=== PATIENT | male | born 1980 | race African-American/Black ===

== ENCOUNTER 2019-08-06 11:00 | Emergency (ER) | payer OTHER ==
[~2019-08-06] VITALS: Ht 175.3 cm; Wt 196.0 kg
[2019-08-06 11:32] VITALS: BP 163/91
== END 2019-08-06 12:52 | disposition home or self-care (01) ==
LOC: ER 11:00
DX: Z77.098 Contact with and (suspected) exposure to other hazardous, chiefly nonmedicinal, chemicals (principal)
CPT/HCPCS: 99281